=== PATIENT | male | born 1995 | race Two or more races ===

== ENCOUNTER 2016-12-15 11:16 | Emergency (ER) | payer OTHER ==
[~2016-12-15] VITALS: Ht 175.3 cm; Wt 65.0 kg
[2016-12-15 12:52] VITALS: BP 120/80
== END 2016-12-15 12:53 | disposition home or self-care (01) ==
LOC: EME 11:16
DX: F41.9 Anxiety disorder, unspecified (principal); R51 Headache; I10 Essential (primary) hypertension
CPT/HCPCS: 70450; 80053; 81003; 85027; 99281; 99284; G0480